=== PATIENT | male | born 1965 | race Caucasian/White ===

== ENCOUNTER 2019-06-22 05:27 | Emergency (ER) | payer SELFPAY ==
[~2019-06-22] VITALS: Ht 170.2 cm; Wt 98.9 kg
[2019-06-22 06:46] VITALS: BP 136/82
[2019-06-22] MEDS ORDERED: methylPREDNISolone SOD SUCC 125 MG/2 ML VL IM ONE (07:00)
[2019-06-22] MEDS ORDERED: cefTRIAXone SOD 1,000 MG VL IM ONE (07:00)
== END 2019-06-22 07:48 | disposition home or self-care (01) ==
LOC: ER 05:27
DX: J01.00 Acute maxillary sinusitis, unspecified (principal); K12.2 Cellulitis and abscess of mouth; G89.29 Other chronic pain
CPT/HCPCS: 71046; 96372; 99283; J0696; J2930

== ENCOUNTER 2021-05-18 03:17 | Emergency (ER) | payer MEDICAID ==
[~2021-05-18] VITALS: Ht 170.2 cm; Wt 90.7 kg
[2021-05-18] MEDS ORDERED: SODIUM CHLORIDE 0.9% 500 ML IVB ONE (03:30)
[2021-05-18] MEDS ORDERED: ONDANSETRON HCL 4 MG/2 ML VIAL IV ONE (03:30)
[2021-05-18] MEDS ORDERED: MORPHINE SULFATE 4 MG/ML SYR/VIAL IV ONE (03:30)
[2021-05-18 04:05] LABS: Eosinophils # (auto) 0.1 10 ^3/uL (0-0.8); Hematocrit 52.4 % (41.0-53.0); Monocytes # (auto) 0.7 10 ^3/uL (0-1.3)
[2021-05-18 04:07] LABS: Basophils # (auto) 0 10 ^3/uL (0-0.2); Basophils % (auto) 0.7 % (0.0-2.0); Eosinophils % (auto) 1.6 % (0.0-7.0); Lymphocytes # (auto) 1.5 10 ^3/uL (0.4-5.4); Lymphocytes % (auto) 23.8 % (10.0-50.0); Mean Corpuscular Hemoglobin 30.3 pg (28.0-32.0); Mean Corpuscular Hgb Conc. 34.3 g/dL (32.0-36.0); Mean Corpuscular Volume 88.3 fL (80.0-100.0); Monocytes % (auto) 10.7 % (0.0-12.0); Neutrophils % (auto) 63.2 % (37.0-80.0); Nucleated Red Blood Cells % 0.3 %; Red Blood Cells 5.94 10^6/uL (4.5-5.90); Red Cell Distribution Width 14.9 % (11.8-14.3); White Blood Cell 6.4 10^3/uL (4.4-10.8)
[2021-05-18 04:22] LABS: Albumin 3.5 g/dL (3.4-5.0); BUN/Creatinine Ratio 14.6; Calcium 8.7 mg/dL (8.5-10.1); Magnesium 2.1 mg/dL (1.6-2.6); Potassium 4.1 mmol/L (3.5-5.1)
[2021-05-18 04:25] LABS: Bilirubin, Total 0.4 mg/dL (0.2-1.0); Total Protein 7.1 g/dL (6.4-8.2)
[2021-05-18 06:20] VITALS: BP 136/74
== END 2021-05-18 06:22 | disposition home or self-care (01) ==
LOC: ER 03:17 → EDBD 03:17 → ER 06:22
DX: K59.00 Constipation, unspecified (principal)
CPT/HCPCS: 36415; 74176; 80053; 82150; 83690; 83735; 85025; 93005; 96361; 96374; 96375; 99285; J2270; J2405; J7040